=== PATIENT | male | born 1955 | race Hispanic/Latino ===

== ENCOUNTER 2017-04-25 09:28 | Emergency (ER) | payer MEDICARE ==
--- NOTE | 2017-04-25 11:10 | XRay Report ---
LEFT WRIST, 4 views: HISTORY: Fall, pain, deformity. No comparison. There has been previous internal fixation of a distal radial fracture with metal plate and screws. There are no obvious acute fracture lines. There is posterior angulation at the chronic fracture site measuring up to 21 degrees on the lateral image. 2 of the distal screws appear to protrude into the radiocarpal joint on the lateral view as well. There are [id number] degenerative changes at the wrist. The soft tissues are unremarkable. IMPRESSION: No acute injury is identified. Healed, internally fixated fracture of the distal left radius with significant posterior angulation measuring 21 degrees. Orthopedic screws may project into the radiocarpal joint on the lateral image. Consider consultation with orthopedics.
[2017-04-25 14:44] VITALS: BP 125/86
--- NOTE | 2017-04-25 15:02 | Emergency Department Report ---
ED Upper Extremity Inj HPI - General Chief Complaint: Extremity Injury, Upper Stated Complaint: LEFT WRIST INJURY Time Seen by Provider: 04/25/17 14:42 Source: patient Mode of arrival: Ambulatory Limitations: No Limitations - History of Present Illness Initial Comments: This is a 61-year-old male nontoxic, well nourished in appearance, no acute signs of distress presents to the ED for a orthopedic consult. Patient stated he had a previous surgery to his left wrist by Dr. Jonse and was supposed to have another surgery but patient stated Dr. Jones office has never called him back. Patient stated he was walking and tripped and tried to break his fall which is what caused him to have a fracture to his distal radius. Patient denies any new trauma to the region. Patient denies any fever, chills, headache , nausea, vomiting, chest pain, shortness of breathe, stiff neck, numbness, tingling, abdominal pain, decreased ROM, decreased sensation. Patient denies any allergies. PMH includes COPD. MD Complaint: Injury to:: left, wrist Other Extremity Injury: Wrist: Left Other Injuries: none Severity scale (0 -10): 0 Improves With: none Worsens With: none Associated Symptoms: denies other symptoms. denies: weakness, numbness, neck pain, suspects foreign body, nausea/vomiting, heard/felt popping sensat - Related Data Allergies Allergy/AdvReac Type Severity Reaction Status Date / Time No Known Allergies Allergy Unverified 04/25/17 09:54 ED Review of Systems ROS: Stated complaint: LEFT WRIST INJURY Other details as noted in HPI Constitutional: denies: chills, fever Eyes: denies: eye pain, eye discharge, vision change ENT: denies: ear pain, throat pain Respiratory: denies: cough, shortness of breath, wheezing Cardiovascular: denies: chest pain, palpitations Endocrine: no symptoms reported Gastrointestinal: denies: abdominal pain, nausea, diarrhea Genitourinary: denies: urgency, dysuria Musculoskeletal: denies: back pain, joint swelling, arthralgia Skin: denies: rash, lesions Neurological: denies: headache, weakness, paresthesias Psychiatric: denies: anxiety, depression Hematological/Lymphatic: denies: easy bleeding, easy bruising ED Past Medical Hx - Past Medical History Previous Medical History?: Yes Hx COPD: Yes - Surgical History Past Surgical History?: Yes Hx Appendectomy: Yes Additional Surgical History: left wrist. right wrist. right leg. jaw fx - Social History Smoking Status: Current Every Day Smoker Substance Use Type: None ED Physical Exam - General Limitations: No Limitations General appearance: alert, in no apparent distress - Head Head exam: Present: atraumatic, normocephalic, normal inspection - Eye Eye exam: Present: normal appearance, PERRL, EOMI. Absent: scleral icterus, conjunctival injection, nystagmus, periorbital swelling, periorbital tenderness Pupils: Present: normal accommodation - ENT ENT exam: Present: normal exam, normal orophraynx, mucous membranes moist, TM's normal bilaterally, normal external ear exam - Neck Neck exam: Present: normal inspection, full ROM. Absent: tenderness, meningismus, lymphadenopathy, thyromegaly - Respiratory Respiratory exam: Present: normal lung sounds bilaterally. Absent: respiratory distress, wheezes, rales, rhonchi, stridor, chest wall tenderness, accessory muscle use, decreased breath sounds, prolonged expiratory - Cardiovascular Cardiovascular Exam: Present: regular rate, normal rhythm, normal heart sounds. Absent: irregular rhythm, systolic murmur, diastolic murmur, rubs, gallop - GI/Abdominal GI/Abdominal exam: Present: soft, normal bowel sounds. Absent: distended, tenderness, guarding, rebound, rigid, diminished bowel sounds - Rectal Rectal exam: Present: deferred - Extremities Exam Extremities exam: Present: normal inspection, full ROM, tenderness, normal capillary refill. Absent: pedal edema, joint swelling, calf tenderness - Expanded Upper Extremity Exam Left General: Present: normal inspection Shoulder Exam: Present: normal inspection, full ROM Upper Arm exam: Present: normal inspection, full ROM Elbow exam: Present: normal inspection, full ROM Forearm Wrist exam: Present: normal inspection, full ROM, swelling. Absent: tenderness, abrasion, laceration, ecchymosis, deformity, crepidus, dislocation, erythema, tenderness over anatomical snuff box, pain with axial thumb loading Hand Wrist exam: Present: normal inspection, full ROM Neuro motor exam: Present: wrist extension intact, thumb opposition intact, thumb IP flexion intact, thumb adduction intact, fingers 2-5 abduction intact Neurosensory exam: Present: 2-point discrimination, radial nerve intact, ulnar nerve intact, median nerve intact Vascular: Present: vascular compromise, normal capillary refill, radial pulse, brachial pulse, ulnar pulse - Back Exam Back exam: Present: normal inspection, full ROM. Absent: tenderness, CVA tenderness (R), CVA tenderness (L), muscle spasm, paraspinal tenderness, vertebral tenderness, rash noted - Neurological Exam Neurological exam: Present: alert, oriented X3, CN II-XII intact, normal gait, reflexes normal - Psychiatric Psychiatric exam: Present: normal affect, normal mood - Skin Skin exam: Present: warm, dry, intact, normal color. Absent: rash - Other Other exam information: no joint redness or joint swelling. Neurovascular intact. Normal cap refill. ED Course Vital Signs 04/25/17 04/25/17 09:54 14:43 Temperature 98.5 F Pulse Rate 79 84 Respiratory 18 20 Rate Blood Pressure 131/84 Blood Pressure 125/86 [Right] O2 Sat by Pulse 95 94 Oximetry - Reevaluation(s) Reevaluation #1: 04/25/17 15:05 Patient is speaking in full sentences with no signs of distress noted. ED Medical Decision Making - Medical Decision Making This is a [id number] male that is requested for an orthopedic refill. Patient is stable and was examined by me. Patient has been referred to Dr. Kennedy. There is swelling to the posterior radius region which patient stated has been that way for 2 months and needs re-surgery. Xray has been obtained with impression of him, internally fixed fracture of the distal left radius with significant posterior angulation measuring 21. Patient was instructed to Follow-up with a ortho in 24 hours or if symptoms worsen and continue return to emergency room as soon as possible. At time time of discharge, the patient does not seem toxic or ill in appearance. No acute signs of distress noted. Patient agrees to discharge treatment plan of care. No further questions noted by the patient. Critical care attestation.: If time is entered above; I have spent that time in minutes in the direct care of this critically ill patient, excluding procedure time. ED Disposition Clinical Impression: Referral needed Disposition: DC-01 TO HOME OR SELFCARE Is pt being admited?: No Does the pt Need Aspirin: No Condition: Stable Instructions: Wrist Fracture in Adults (ED) Additional Instructions: Follow-up with a orthopedic doctor in 24 hours or if symptoms worsen and continue return to emergency room as soon as possible. Referrals: PRIMARY CARE, [Primary Care Provider] - 3-5 Days BAYLEE KENNEDY MD [Staff Physician] - 3-5 Days [facility] [Outside] - 3-[address] [facility] [Outside] - 3-5 Days
== END 2017-04-25 15:53 | disposition home or self-care (01) ==
LOC: ED 09:28
DX: S69.92XD Unspecified injury of left wrist, hand and finger(s), subsequent encounter (principal); J44.9 Chronic obstructive pulmonary disease, unspecified; Y92.89 Other specified places as the place of occurrence of the external cause
CPT/HCPCS: 99283